=== PATIENT | female | born 1960 | race American Indian/Alaskan Native ===

== ENCOUNTER 2017-08-14 09:45 | Emergency (ER) | payer MEDICARE ==
--- NOTE | 2017-08-14 15:00 | Emergency Department Report ---
ED Neck Pain/Injury HPI - General Chief Complaint: Extremity Injury, Upper Stated Complaint: LEFT ARM/HAND NUMB Time Seen by Provider: 08/14/17 14:31 Source: patient Mode of arrival: Ambulatory Limitations: No Limitations - History of Present Illness Initial Comments: PT has a hx of of chronic back pain, under care of Dr Hanson, spine MD. PT states she is on Lortab and Ultram for pain. She states she has had to have the nerves in her back burnt. PT states she was given a referral to ortho for her knee pain but they did not take her insurance. PT states she has been working at [employer] for a month. 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 PT states she usually gets help with this task, but last night, she did not get help. PT reports numbness and tingling in her L arm since 0600. PT also reports neck pain. MD Complaint: neck pain -: Gradual Place: home Radiation: left upper extremity Severity scale (0 -10): 10 Quality: sharp Consistency: constant Worsens With: movement of extremity Associated Symptoms: weakness. denies: headache, fever, difficulty walking Treatments Prior to Arrival: prescription pain med - Related Data Previous Rx's Medication Instructions Recorded Last Taken Type Triamter/Hctz 37.5-25 mg 1 tab PO QDAY #4 tablet 08/10/14 Unknown Rx [Maxzide-25] traMADol [Ultram 50 MG tab] 50 mg PO Q6HR PRN #10 tablet 08/10/14 Unknown Rx methOCARBAMOL [Robaxin TAB] 500 mg PO Q6H PRN #15 tablet 08/14/17 Unknown Rx predniSONE [Deltasone] 40 mg PO QDAY #6 tab 08/14/17 Unknown Rx Allergies Allergy/AdvReac Type Severity Reaction Status Date / Time ampicillin Allergy Hives Verified 08/10/14 10:10 erythromycin base Allergy Hives Verified 08/10/14 10:10 Penicillins Allergy Hives Verified 08/10/14 10:10 tetracycline Allergy Hives Verified 08/10/14 10:10 ED Review of Systems ROS: Stated complaint: LEFT ARM/HAND NUMB Other details as noted in HPI Comment: All other systems reviewed and negative Constitutional: denies: fever Respiratory: denies: shortness of breath, SOB with exertion, SOB at rest Cardiovascular: denies: chest pain Gastrointestinal: denies: vomiting Musculoskeletal: as per HPI, back pain Neurological: weakness (pt states her Left arm feels weak ), numbness, paresthesias, other (pt states she has a hx of tremor ). denies: abnormal gait ED Past Medical Hx - Past Medical History Hx Hypertension: Yes Hx Headaches / Migraines: Yes Additional medical history: spinal stenosis. hypothyroid. Degenerative Bone Disease - Surgical History Hx Cholecystectomy: Yes Additional Surgical History: gastric bypass 2003. . left knee replacement - Social History Smoking Status: Never Smoker Substance Use Type: None - Medications Home Medications: Home Medications Medication Instructions Recorded Confirmed Last Taken Type Triamter/Hctz 37.5-25 mg 1 tab PO QDAY #4 tablet 08/10/14 Unknown Rx [Maxzide-25] traMADol [Ultram 50 MG tab] 50 mg PO Q6HR PRN #10 tablet 08/10/14 Unknown Rx methOCARBAMOL [Robaxin TAB] 500 mg PO Q6H PRN #15 tablet 08/14/17 Unknown Rx predniSONE [Deltasone] 40 mg PO QDAY #6 tab 08/14/17 Unknown Rx ED Physical Exam - General Limitations: No Limitations General appearance: alert, in no apparent distress - Head Head exam: Present: atraumatic, normocephalic, normal inspection - Eye Eye exam: Present: normal appearance. Absent: conjunctival injection, nystagmus - ENT ENT exam: Present: normal exam, normal external ear exam - Neck Neck exam: Present: normal inspection, tenderness (left lateral neck ), full ROM , other (+ Spurling's test ). Absent: meningismus - Respiratory Respiratory exam: Present: normal lung sounds bilaterally. Absent: respiratory distress, wheezes, rales, rhonchi, chest wall tenderness - Cardiovascular Cardiovascular Exam: Present: regular rate, normal rhythm, normal heart sounds - GI/Abdominal GI/Abdominal exam: Present: soft. Absent: tenderness - Extremities Exam Extremities exam: Present: normal inspection, full ROM - Expanded Upper Extremity Exam Left Shoulder Exam: Present: normal inspection Forearm Wrist exam: Present: normal inspection, full ROM. Absent: tenderness Hand Wrist exam: Present: normal inspection, full ROM. Absent: tenderness Neuro motor exam: Present: wrist extension intact, thumb IP flexion intact, fingers 2-5 abduction intact, other (no weakness ) Vascular: Present: radial pulse. Absent: vascular compromise - Back Exam Back exam: Present: normal inspection. Absent: CVA tenderness (R), CVA tenderness (L) - Neurological Exam Neurological exam: Present: alert, oriented X3, normal gait - Psychiatric Psychiatric exam: Present: normal affect, normal mood - Skin Skin exam: Present: warm, dry, intact, normal color ED Course Vital Signs 08/14/17 09:58 Temperature 98.5 F Pulse Rate 69 Respiratory 20 Rate Blood Pressure 126/80 O2 Sat by Pulse 99 Oximetry - Reevaluation(s) Reevaluation #1: 08/14/17 15:06 PT declined plain films of C-spine. PT had EKG in triage. PT declining further work up. She states she can follow up outpt. She states she had to call out of work tonight and she would like a work excuse. - Pulse Oximetry Interpretation Digit-Finger Initial Pulse Oximetry Readin Actions Taken: none ED Medical Decision Making - EKG Data -: EKG Interpreted by Me (and MD) EKG shows normal: sinus rhythm Rate: normal (rate of 62) - Differential Diagnosis cervical radiculopathy, ddd, djd Critical Care Time: No Critical care attestation.: If time is entered above; I have spent that time in minutes in the direct care of this critically ill patient, excluding procedure time. ED Disposition Clinical Impression: Cervical radiculopathy Disposition: TO HOME OR SELFCARE Is pt being admited?: No Does the pt Need Aspirin: No Condition: Stable Instructions: Cervical Disc Herniation (ED), Cervical Spinal Stenosis (ED), Cervical Radiculopathy (ED), Degenerative Disc Disease (ED) Additional Instructions: Follow up with ORTHO in 3-5 days No driving or alcohol after taking Robaxin Prescriptions: methOCARBAMOL [Robaxin TAB] 500 mg PO Q6H PRN #15 tablet PRN Reason: Muscle Spasm predniSONE [Deltasone] 40 mg PO QDAY #6 tab Referrals: ANDREA BILLINGSLEY MD [Primary Care Provider] - 3-5 Days LIANA DAILY MD [Staff Physician] - 3-5 Days MIKEL BENSON MD [Staff Physician] - 3-5 Days Forms: Work/School Release Form(ED) Time of Disposition: 15:09
[2017-08-14 15:43] VITALS: BP 113/59
== END 2017-08-14 15:58 | disposition home or self-care (01) ==
LOC: ED 09:45
DX: M54.12 Radiculopathy, cervical region (principal); I10 Essential (primary) hypertension; G43.909 Migraine, unspecified, not intractable, without status migrainosus; Z88.1 Allergy status to other antibiotic agents; Z88.0 Allergy status to penicillin; Z88.8 Allergy status to other drugs, medicaments and biological substances
CPT/HCPCS: 93005; 93010; 99282